=== PATIENT | female | born 1980 | race Caucasian/White ===

== ENCOUNTER 2023-10-30 16:48 | Emergency (ER) | payer OTHER, SELFPAY ==
[2023-10-30 16:52] VITALS: PULSE 102; TEMP 36.7; O2SAT 97; BMI 41.3
[2023-10-30 16:57] VITALS: BP 160/106
--- NOTE | 2023-10-30 17:08 | XR_ITS ---
The [address] [address] Patient Name: CHERYL TALLEY MRN: [id number] date: 1980 Sex: F Assigned Patient Location: ER Current Patient Location: Accession/Order Number: [id number] Exam Date: 10/30/2023 17:45 Report Date: 10/30/2023 19:12 At the request of: DEEPALI TRUONG Procedure: XR foot RT min 3V IMAGES REVIEWED: XR foot RT min 3V COMPARISON: 03/21/2019, 05/11/2019. CLINICAL INDICATION: Right great toe with swelling and redness FINDINGS/IMPRESSION: Tiny indeterminate density seen adjacent to the medial first metatarsal head on the frontal view, possibly located along the plantar medial forefoot on the lateral view. There also appears to be a tiny indeterminant soft tissue density seen adjacent to the lateral aspect of the second MTP joint on the frontal view. These are not seen on the prior from 2019. Could represent small soft tissue calcifications or retained foreign bodies. No radiographic evidence of osteomyelitis or acute osseous abnormality of the right foot-first digit. First toe-dorsal foot soft tissue swelling extending into the ankle, may suggest cellulitis. Electronically authenticated by: SALVADOR DEL ROSARIO Date: 10/30/2023 19:12
--- NOTE | 2023-10-30 17:09 | ED_ITS ---
HPI - Extremity Problem General Chief complaint: Extremity Problem, Nontraumatic Stated complaint: RED PAINFUL LEG Time Seen by Provider: 10/30/23 17:04 Source: patient Mode of arrival: walk-in History of Present Illness HPI Narrative: This patient is here complaining of increasing redness in her right lower leg and also new redness at the great toe joint area of her right foot. 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 She says she has had redness of her lower leg for a long long time but has gotten a little bit more red. She does not have any history of DVT or phlebitis. She said the whole problem seem to get worse after she noticed redness at the metatarsophalangeal joint of her right great toe. She is currently not on antibiotics. She is not on any immune suppressants. She is not a diabetic as I said. She is not running a fever home and she is afebrile here. She has no shortness of breath or chest discomfort. Related Data Home Medications ?Medication ?Instructions ?Recorded ?Confirmed No Known Home Medications 10/30/23 10/30/23 Allergies Allergy/AdvReac Type Severity Reaction Status Date / Time No Known Drug Allergies Allergy Verified 10/30/23 16:52 Exam Narrative Exam Narrative: This patient's vital signs are stable she is afebrile. Does have elevation of her blood pressure and she is anxious. Will discuss follow-up with that Problem focused examination shows a small blistered area at the metatarsophalangeal joint of the right great toe. She has decreased sensation at that area that is chronic. She has a little bit of surrounding erythema in this area. In the distal tib-fib area anteriorly there is mild erythema that as she noted above is chronic but is more red than usual. She does not have any pain with squeezing of the calf. The knee joint is normal. Ankle joint is also normal. This does not appear to be a septic joint but is consistent with an infectious process. After Betadine scrubbing this area we did do a culture. Constitutional Vital Signs, click to edit/add: Last Vital Signs Temp 98.1 F 10/30/23 16:52 Pulse 102 H 10/30/23 16:52 Resp 18 10/30/23 16:52 BP 160/106 H 10/30/23 16:57 Pulse Ox 97 10/30/23 16:52 O2 Del Method Room Air 10/30/23 16:52 Course Vital Signs Vital signs: Vital Signs Temperature 98.1 F 10/30/23 16:52 Pulse Rate 102 H 10/30/23 16:52 Respiratory Rate 18 10/30/23 16:52 Pulse Oximetry 97 10/30/23 16:52 Oxygen Delivery Method Room Air 10/30/23 16:52 Temperature 98.1 F 10/30/23 16:52 Pulse Rate 102 H 10/30/23 16:52 Respiratory Rate 18 10/30/23 16:52 Blood Pressure 160/106 H 10/30/23 16:57 Pulse Oximetry 97 10/30/23 16:52 Oxygen Delivery Method Room Air 10/30/23 16:52 MDM - Extremity (Nontraumatic) MDM Narrative Medical decision making narrative: X-rays were done in the area to rule out any possible foreign body in fact there is a radio opaque foreign body in the same area. After cleansing this area with Betadine we are able to make a tiny puncture wound with a number 18-gauge needle and culture of the fluid that was recovered. We are advising her to follow-up with podiatry this coming Wednesday. She does not have a primary care doctor. We will start her on Keflex. This does not appear to be MRSA. She her lactate level and her white count is normal. Both her and her male javascript developer were advised to return should symptoms or any this get worse for her throughout the remainder of the weekend. Lab Data Labs: Lab Results 10/30/23 Range/Units 17:20 WBC 10.5 (4.0-11.0) 10^3/uL RBC 4.42 (4.20-5.40) 10^6/uL Hgb 12.4 (12.0-16.0) g/dL Hct 37.3 (36.0-48.0) % MCV 84.4 (81.0-99.0) fL MCH 28.1 (26.7-34.0) pg MCHC 33.2 (29.9-35.2) g/dL RDW 13.1 (11.0-15.0) % Plt Count 319 (150-450) 10^3/uL MPV 9.7 (9.5-13.5) fL Neut % (Auto) 70.2 (43.0-75.0) % Lymph % (Auto) 19.4 L (20.5-60.0) % Mccormick % (Auto) 6.3 (1.7-12.0) % Eos % (Auto) 3.1 (0.9-7.0) % Baso % (Auto) 0.6 (0.2-2.0) % Neut # (Auto) 7.4 H (1.4-6.5) 10^3/uL Lymph # (Auto) 2.0 (1.2-3.8) 10^3/uL Mccormick # (Auto) 0.7 (0.3-0.8) 10^3/uL Eos # (Auto) 0.3 (0.0-0.7) 10^3/uL Baso # (Auto) 0.1 (0.0-0.1) 10^3/uL Abs Immat Gran (auto) 0.04 H (0.00-0.03) 10^3/uL Imm/Tot Granulo (auto) 0.4 (0.0-0.5) % Lactate 1.7 (0.4-2.0) mmol/L Discharge Plan Discharge Chief Complaint: Extremity Problem, Nontraumatic Clinical Impression: Blister of foot with infection, Foreign body in foot Patient Disposition: Home, Self-Care Time of Disposition Decision: 18:09 Prescriptions / Home Meds: No Action No Known Home Medications Print Language: Swedish Additional Instructions: Keflex/warm compresses/follow-up with podiatry, Dr. Олег Gutierrez Wednesday. Call for appointment Referrals: Unruly Antonio MD [Primary Care Provider] - 1 week
[2023-10-30 17:27] LABS: Basophils Absolute Auto 0.1 10^3/uL (0.0-0.1); Basophils Percent Auto 0.6 % (0.2-2.0); Eosinophils Absolute Auto 0.3 10^3/uL (0.0-0.7); Eosinophils Percent Auto 3.1 % (0.9-7.0); Hematocrit 37.3 % (36.0-48.0); Hemoglobin 12.4 g/dL (12.0-16.0); Immature Granulocytes Abs Auto 0.04 10^3/uL (0.00-0.03); Immature Granulocytes Pct Auto 0.4 % (0.0-0.5); Lymphocytes Percent Auto 19.4 % (20.5-60.0); Mean Corpuscular HGB Conc 33.2 g/dL (29.9-35.2); Mean Corpuscular Hemoglobin 28.1 pg (26.7-34.0); Mean Corpuscular Volume 84.4 fL (81.0-99.0); Mean Platelet Volume 9.7 fL (9.5-13.5); Monocytes Absolute Auto 0.7 10^3/uL (0.3-0.8); Monocytes Percent Auto 6.3 % (1.7-12.0); Neutrophils Absolute Auto 7.4 10^3/uL (1.4-6.5); Neutrophils Percent Auto 70.2 % (43.0-75.0); Platelet Count 319 10^3/uL (150-450); Red Blood Count 4.42 10^6/uL (4.20-5.40); Red Cell Distribution Width 13.1 % (11.0-15.0); White Blood Count 10.5 10^3/uL (4.0-11.0)
[2023-10-30 17:42] LABS: Lactate/Lactic Acid 1.7 mmol/L (0.4-2.0)
[2023-10-30] MEDS: CEPHALEXIN 500 MG CAPSULE PO ×2 (18:18)
== END 2023-10-30 18:28 | disposition home or self-care (01) ==
PROVIDERS: Emergency Provider Emergency Medicine Emergency Medical Services; PCP Family Medicine
DX: S90.821A Blister (nonthermal), right foot, initial encounter (principal); L08.9 Local infection of the skin and subcutaneous tissue, unspecified; X58.XXXA Exposure to other specified factors, initial encounter; S90.851A Superficial foreign body, right foot, initial encounter
CPT/HCPCS: 36415; 73630; 83605; 85025; 87070; 87075; 99284

== ENCOUNTER 2023-11-09 13:33 | Outpatient (OUT) | payer OTHER, SELFPAY | END 2023-11-09 13:34 | disposition home or self-care (01) | LOC: WC 13:33 | PROVIDERS: PCP Family Medicine; Visit Provider Physician Assistant | DX: L97.412 Non-pressure chronic ulcer of right heel and midfoot with fat layer exposed (principal); S91.301D Unspecified open wound, right foot, subsequent encounter | CPT/HCPCS: G0463 ==

== ENCOUNTER 2023-11-29 11:38 | Outpatient (OUT) | payer OTHER, SELFPAY ==
--- OUTSIDE RECORDS SUMMARY | 2023-11-29 11:40 | XMS_ITS | CCD ---
Author Organization [facility] Inform ion [facility] Care Team Providers Care Book Reviewer Name Role Phone CORY, DR LUCA Brownlee Primary Care Unavailable ENMANUEL, DR SYED Consulting Unavailable ENMANUEL, DR SYED Attending Unavailable ENMANUEL, DR SYED Admitting Unavailable NADERER, DR LUCA Brownlee Primary Care Unavailable KHARI, GUILLERMINA Admitting Unavailable KHARI, GUILLERMINA Consulting Unavailable KHARI, GUILLERMINA Attending Unavailable ENMANUEL, DR SYED Admitting Unavailable NADANA MARIA, DR LUCA Brownlee Primary Care Unavailable ENMANUEL, DR SYED Consulting Unavailable ENMANUEL, DR SYED Attending Unavailable ENMANUEL, DR SYED Admitting Unavailable NADERER, DR LUCA Brownlee Primary Care Unavailable ENMANUEL, DR SYED Attending Unavailable ENMANUEL, DR SYED Admitting Unavailable NADANA MARIA, DR LUCA Brownlee Primary Care Unavailable ENMANUEL, DR SYED Consulting Unavailable ENMANUEL, DR SYED Attending Unavailable ZAMZAM CRONIN Consulting Unavailable Allergies Allergy Classification Reported Allergen(s) Allergy Type Date of Onset Reaction(s) Facility (1 source) Benzalkonium / Lidocaine Drug Allergy 02-16-1984 [facility] (1 source) Morphine Drug Allergy 02-24-1998 [facility] Problems Active Problems Problem Classification Problem Date Documented Date Episodic/Chronic Anxiety disorders (1 source) Anxiety disorder, unspecified; Translations: [ANXIETY DISORDER UNSPECIFIED] Onset: 01-08-2021 Chronic Asthma (1 source) Unspecified asthma, uncomplicated; Translations: [UNSPECIFIED ASTHMA UNCOMPLICATED] Onset: 01-08-2021 Chronic E Codes: Cut/pierceb (1 source) Other foreign body or object entering through skin, initial encounter; Translations: [OTH FB/OBJ ENTERING THRU SKIN INIT] Onset: 11-18-2021 Episodic Immunizations and screening for infectious disease (2 sources) Encounter for immunization; Translations: [Encounter for screening for human papillomavirus (HPV)] Onset: 09-12-2021 Episodic Menstrual disorders (5 sources) Excessive and frequent menstruation with regular cycle; Translations: [Dysmenorrhea, unspecified] Onset: 01-03-2021 Chronic Mood disorders (1 source) Mood disorders; Translations: [DEPRESSION UNSPECIFIED] Onset: 01-08-2021 Other aftercare (1 source) Other long term acute care registered nurse (current) drug therapy; Translations: [OTH INTERMEDIATE CURRENT DRUG THERAPY] Onset: 11-18-2021 Episodic Other female genital disorders (1 source) Unspecified dyspareunia; Translations: [UNSPECIFIED DYSPAREUNIA] Onset: 01-08-2021 Chronic Other nutritional; endocrine; and metabolic disorders (1 source) Obesity, unspecified; Translations: [OBESITY UNSPECIFIED] Onset: 01-08-2021 Chronic Other screening for suspected conditions (not mental disorders or infectious disease) (4 sources) Encounter for screening for malignant neoplasm of cervix; Translations: [ENC SCREENING MALIG NEOPLASM CERV] Onset: 09-09-2021 Episodic Substance-related disorders (2 sources) Nicotine dependence, chewing tobacco, uncomplicated; Translations: [Nicotine dependence, cigarettes, uncomplicated] Onset: 01-08-2021 Chronic Superficial injury; contusion (4 sources) Superficial foreign body of left hand, initial encounter; Translations: [SUPERFICIAL FB LT HAND INITIAL] Onset: 11-16-2021 Episodic Unclassified (1 source) CONTACT W/AND (SUSP) EXPOS COVID-19; Translations: [CONTACT W/AND (SUSP) EXPOS COVID-19] Onset: 01-06-2021 Past or Other Problems Problem Classification Problem Date Documented Date Episodic/Chronic Abdominal pain (1 source) Pelvic and perineal pain; Translations: [PELVIC AND PERINEAL PAIN] Onset: 01-08-2021 Episodic Contraceptive and procreative management (1 source) Encounter for sterilization; Translations: [ENCOUNTER FOR STERILIZATION] Onset: 01-08-2021 Episodic Inflammatory diseases of female pelvic organs (1 source) Inflammatory disease of cervix uteri; Translations: [INFLAMMATORY DISEASE CERVIX UTERI] Onset: 01-08-2021 Episodic Other female genital disorders (1 source) Other noninflammatory disorders of ovary, fallopian tube and broad ligament; Translations: [OTH NONINFL D/O OVARY TUBE AND BRD LIG] Onset: 01-08-2021 Episodic Substance-related disorders (1 source) Cannabis use, unspecified, uncomplicated; Translations: [CANNABIS USE UNS UNCOMPLICATED] Onset: 01-08-2021 Episodic Results Test Name Value Interpretation Reference Range Facil ity PAP ACOG PANEL 2: 30 to 65on 09-15-2021 . . Normal [facility] Comment on above: Result Comment: Perf ormed at: WB Performed By: #### [id number] #### [facility] [address] [address] [address] Argentina Chau Age Gdln ACOG Testing 30-65 Normal [facility] Comment on above: Performed By: #### [id number] #### [facility] [address] [address] [address] Argentina Chau DIAGNOSIS: Comment Normal [facility] Comment on above: Result Comment: NEGA TIVE FOR INTRAEPITHELIAL LESION OR MALIGNANCY. Performed at: WB Performed By: #### [id number] #### [facility] [address] [address] [address] Argentina Chau HPV Aptima Negative Normal Negative [facility] Comment on above: Result Comment: This nucleic acid amplification test detects fourteen high-risk HPV types (16,18,31,33,35,39,45,51,52,56,58,59,66,68) without differentiation. Performed at: =G Performed By: #### [id number] #### [facility] [address] [address] [address] Argentina Chau Methodology: Comment Normal [facility] Comment on above: Result Comment: This liquid based ThinPrep(R) pap test was screened with the use of an image guided system. Performed at: WB Performed By: #### [id number] #### [facility] [address] [place] [address] Dr. Argentina Chau Note: Comment Normal [facility] Comment on above: Result Comment: The Pap smear is a screening test designed to aid in the detection of premalignant and malignant conditions of the uterine cervix. It is not a diagnostic procedure and should not be used as the sole means of detecting cervical cancer. Both false-positive and false-negative reports do occur. . Performed at: WB Performed By: #### [id number] #### [facility] [address] [place] [address] Dr. Argentina Chau Performed by: Comment Normal [facility] Comment on above: Result Comment: Nupur Do, Mail Sorting Supervisor (ASCP) Performed at: WB Performed By: #### [id number] #### [facility] [address] [place] [address] Dr. Argentina Chau Specimen adequacy: Comment Normal [facility] Comment on above: Result Comment: Sati sfactory for evaluation. Endocervical and/or squamous metaplastic cells (endocervical component) are present. Performed at: WB Performed By: #### [id number] #### [facility] [address] [place] [address] Dr. Argentina Chau CBC AUTO DIFFon 01-03-2021 BASO # 0.1 103/ul Normal 0.0-0.1 [facility] Comment on above: Performed By: #### C BC #### [facility] [address] [place] [address] Dr. Argentina Chau Basophils/100 WBC (Bld) 1.2 % Normal 0.2-2.0 [facility] Comment on above: Performed By: #### C BC #### [facility] [address] [place] [address] Dr. Argentina Chau EO # 0.2 103/ul Normal 0.0-0.7 [facility] Comment on above: Performed By: #### C BC #### [facility] [address] [place] [address] Dr. Argentina Chau Eosinophils/100 WBC (Bld) 2.7 % Normal 0.9-7.0 [facility] Comment on above: Performed By: #### C BC #### [facility] [address] [place] [address] Dr. Argentina Chau Erythrocyte distribution width (RBC) [Ratio] 15.5 % Critically high 11.0-15.0 [facility] Comment on above: Performed By: #### C BC #### [facility] [address] [place] [address] Dr. Argentina Chau Hematocrit (Bld) [Volume fraction] 35.1 % Critically low 36.0-48.0 [facility] Comment on above: Performed By: #### C BC #### [facility] [address] [place] [address] Dr. Argentina Chau Hemoglobin (Bld) [Mass/Vol] 10.5 g/dL Critically low 12.0-16.0 [facility] Comment on above: Performed By: #### C BC #### [facility] [address] [place] [address] Dr. Argentina Chau IG # 0.02 10e3/ul Normal 0.00-0.03 [facility] Comment on above: Performed By: #### C BC #### [facility] [address] [place] [address] Dr. Argentina Chau IG % 0.3 % Normal 0.0-0.5 [facility] Comment on above: Performed By: #### C BC #### [facility] [address] [place] [address] Dr. Argentina Chau LYMPH # 1.9 103/ul Normal 1.2-3.8 [facility] Comment on above: Performed By: #### C BC #### [facility] [address] [place] [address] Dr. Argentina Chau Lymphocytes/100 WBC (Bld) 26.5 % Normal 20.5-60.0 [facility] Comment on above: Performed By: #### C BC #### [facility] [address] [place] [address] Dr. Argentina Chau MANUAL DIFF REQ NO Normal [facility] Comment on above: Performed By: #### C BC #### [facility] [address] [place] [address] Dr. Argentina Chau MCH (RBC) [Entitic mass] 22.6 pg Critically low 26.7-34.0 [facility] Comment on above: Performed By: #### C BC #### [facility] [address] [place], [place] [id number] Dr. Argentina Chau MCHC (RBC) [Mass/Vol] 29.9 g/dL Normal 29.9-35.2 [facility] Comment on above: Performed By: #### C BC #### [facility] [address] [place] [address] Dr. Argentina Chau MCV (RBC) [Entitic vol] 75.5 fL Critically low 81.0-99.0 [facility] Comment on above: Performed By: #### C BC #### [facility] [address] [place] [address] Dr. Argentina Chau MONO # 0.4 103/ul Normal 0.3-0.8 [facility] Comment on above: Performed By: #### C BC #### [facility] [address] [place] [address] Dr. Argentina Chau Monocytes/100 WBC (Bld) 5.6 % Normal 1.7-12.0 [facility] Comment on above: Performed By: #### C BC #### [facility] [address] [place] [address] Dr. Argentina Chau NEUT # 4.7 103/ul Normal 1.4-6.5 [facility] Comment on above: Performed By: #### C BC #### [facility] [address] [place] [address] Dr. Argentina Chau Neutrophils/100 WBC (Bld) 63.7 % Normal 43.0-75.0 [facility] Comment on above: Performed By: #### C BC #### [facility] [address] [place] [address] Dr. Argentina Chau Platelet mean volume (Bld) [Entitic vol] 9.7 fL Normal 9.5-13.5 [facility] Comment on above: Performed By: #### C BC #### [facility] [address] [place] [address] Dr. Argentina Chau PLT 440 103/ul Normal 150-450 [facility] Comment on above: Performed By: #### C BC #### [facility] [address] [place] [address] Dr. Argentina Chau RBC 4.65 106/ul Normal 4.20-5.40 [facility] Comment on above: Performed By: #### C BC #### [facility] [address] [place] [address] Dr. Argentina Chau WBC 7.3 103/ul Normal 4.0-11.0 [facility] Comment on above: Performed By: #### C BC #### [facility] [address] [place] [address] Dr. Argentina Chau PREG QUANT HCGon 01-03-2021 HCG QUANT <1 Normal [facility] Comment on above: Performed By: #### P REGQNT #### [facility] [address] [place] [address] Dr. Argentina Chau HCG RANGE SEE BELOW Normal [facility] Comment on above: Result Comment: 5-50 0-1 WEEK 40-300 1-2 WEEKS 100-1,000 2-3 WEEKS 500-6,000 3-4 WEEKS 5,000-200,000 1-2 MONTHS 10,000-100,000 2-3 MONTHS 3,000-50,000 2ND TRIMESTER 1,000-50,000 3RD TRIMESTER Performed By: #### P REGQNT #### [facility] [address] [place] [address] Dr. Argentina Chau [facility] ([facility]on 12-16 SARS-CoV-2 (COVID-19) RNA AMY+probe Ql (Unsp spec) Not detected Normal NOT DETECTED [facility] Comment on above: Result Comment: This test is not yet approved or cleared by the [place] FDA. When there are no FDA-approved or cleared tests available, and other criteria are met, FDA can make tests available under an emergency access mechanism called an Emergency Use Authorization (EUA). The EUA for this test is supported by the [place] of Health and Human Service's (HHS's) declaration that circumstances exist to justify the emergency use of in vitro diagnostics for the detection and/or diagnosis of the virus that causes COVID-19. This EUA will remain in effect (meaning this test can be used) for the duration of the COVID-19 declaration justifying emergency of IVDs, unless it is terminated or revoked by FDA (after which the test may no longer be used). When diagnostic testing is negative, the possibility of a false negative should be considered in the context of a patient's recent exposures and the presence of clinical signs and symptoms consistent with SARS-CoV-2. Performed By: #### C [facility] #### [facility] [address] [place], [place] [address] Dr. Argentina Chau Encounters Encounter Date Encounter Type Care Provider Facility Start: 11-16-2021 End: 11-16-[address] LUCA RAY Facility:[facility] Start: 09-09-2021 End: 09-09-[address] LUCA RAY Facility:[facility] Start: 01-06-2021 Encounter for prepro cedural laboratory examination DR YAHAIRA PERLA [facility] Start: 01-03-2021 End: 01-03-[address] YAHAIRA PERLA Facility:[facility] Start: 12-31-2020 End: 01-01-[address] YAHAIRA PERLA Facility:[facility] Start: 12-31-2020 End: 01-01-2021 Encounter for preprocedural laboratory examination DR YAHAIRA PERLA Facility:[facility] Payers Date Payer Category Payer Unknown [id number] 2.16.84 [id number] 1980 Unknown [id number] 2.16.84 [id number] 1980 Unknown [id number] 2.16.84 [id number] 1980 Unknown [id number] 2.16.84 [id number] 1980 Unknown [id number] 2.16.84 [id number] 1959 Unknown [id number] Clinical Note 01-03-2021 Note Date & Type Note Facility 01-03-2021 Note The [place], [place] NAME: MAYANK CHERYL Rivas DATE OF : [facility] REC#: [id number] FUNERAL PRE NEED CONSULTANT: 140DUSTIN ANNEADMIT DATE: 01/03/2021 10:47:00 [employer] MECHANIC DATE: 01/03/2021 20:00 DICTATING PHYSICIAN: YAHAIRA PERLA DICTATION DATE: 01/03/2021 13:00 OPERATIVE NOTE OPERATION DATE: 01/03/2021 PROCEDURE NAME: 1. Veronica endometrial ablation 2. Laparoscopic bilateral salpingectomy. PREOPERATIVE DIAGNOSES: 1. Menorrhagia. 2. Desires permanent sterilization. 3. Dysmenorrhea. POSTOPERATIVE DIAGNOSES: 1. Menorrhagia. 2. Desires permanent sterilization. 3. Dysmenorrhea. ANESTHESIA: General. SURGEON: Yahaira Perla DO SECOND MATE: JANINE Alcantara URINE OUTPUT: Yellow and clear. FINDINGS: Normal-appearing ovaries, uterus and tubes. No gross evidence of polyp, fibroid or malignancy. Both ostia seen. SPECIMEN: Bilateral tubes. BLOOD LOSS: 5 mL. PROCEDURE NOTE: The patient was taken back to the OR where she was prepped and draped in the normal sterile fashion after being placed in the dorsal lithotomy position, after being placed under general anesthesia without difficulty. The anterior lip was grasped with a single tooth tenaculum. The patient was then gently sounds. The patient was gently sounded using Hegar dilators and the hysteroscope was passed through the cervix into the uterus where both ostia were seen. No gross evidence of polyps, fibroids or malignancy. A weighted speculum was placed in the patient's vagina, the anterior tip of the cervix was identified and grasped with a single tooth tenaculum. The patient was gently sounded to roughly 10 cm. The cervical length was noted to be 5 cm. The Vreonica ablation apparatus was set to approximately 5 in length. Total cavity length was 5. This was placed in through the cervix and into the uterus. After the seal was tested, at that time the total ablation of 120 seconds was performed with the Veronica without difficulty. All instruments were removed from the vagina. A wet sponge stick was placed into the patient's vagina. Attention was then turned to the patient's abdomen, where a scalpel was used to make a small infraumbilical incision. The S retractors were then used to dissect the underlying layers until the fascia could be seen. The fascia was then grasped with Andrews clamps and tented up. A knife was then used to make a small incision to the fascia. The muscle was identified, at that time two sutures of #0 Vicryl on a GI needle was then used and placed through the fascia. The peritoneum was then identified and entered bluntly. The 10-4 Tal was then placed into the patient's abdomen. This was confirmed with direct visualization of the bowel, using the laparoscope. The patient's abdomen was then insufflated using approximately 4 liters of CO2 gas. Survey of the patient's abdomen demonstrated ovaries were normal in appearance as well as both tubes. A second and third lateral ports, which was 7-8 and 5mm in size, was then placed laterally after incision was made in the skin under direct visualization. The patient's tube on the patient's right side was identified. Instead of using Filshie clips the LigaSure apparatus was used to come across the mesosalpinx and this was done on the contralateral side. The tubes was removed in its entirety. The lateral ports was then moved under direct visualization with excellent hemostasis. All instruments were removed from the patient's abdomen. The fascia was closed using the #0 Vicryl on GI needle. The skin was closed using 4-0 Vicryl subcuticularly. All instruments were removed from the patient's vagina as well. The patient was taken out of the dorsal lithotomy position and placed in the supine position and taken to recovery in stable condition. Sponge, lap and needle counts were correct x2. Electronically Authenticated and Edited by: Yahaira Perla DO on 01/06/2021 09:18 AM [facility] Signed and Approved by: DR YAHAIRA PERLA . 01/06/2021 09:18:00 [facility] Summary Purpose Family History No Family History Records Found Advance Directives No Advanced Directives Records Found Additional Source Comments INFORMATION SOURCE (unrecogn ized section and content) DATE CREATED AUTHOR 11/18/2021 [facility] FOR RECORDS PERTAINING TO PATIENTS WHO ARE OR HAVE BEEN ENROLLED IN A CHEMICAL DEPENDENCY/SUBSTANCEABUSE PROGRAM, SOME INFORMATION MAY BE OMITTED. This clinical summary was aggregated from multiple sources. Caution should be exercised in using it in the provision of clinical care. This summary normalizes information from multiple sources, and as a consequence, information in this document may materially change the coding, format and clinical context of patient data. In addition, data may be omitted in some cases. CLINICAL DECISIONS SHOULD BE BASED ON THE PRIMARY CLINICAL RECORDS. [employer] [facility]. provides no warranty or guarantee of the accuracy or completeness of information in this document.
== END 2023-11-29 11:39 | disposition home or self-care (01) ==
LOC: WC 11:38
PROVIDERS: PCP Family Medicine; Visit Provider Physician Assistant
DX: L97.412 Non-pressure chronic ulcer of right heel and midfoot with fat layer exposed (principal)
CPT/HCPCS: 11042